=== PATIENT | female | born 1945 | race Caucasian/White ===

== ENCOUNTER → 2017-07-27 | Outpatient (CLI) | payer MEDICARE, OTHER ==
[~2017-07-27] MED LIST: AMOX-362 PO; CLI150 PO; LEVO150T72 PO
--- NOTE | 2017-07-29 09:06 | RADIOLOGY IMAGING REPORT ---
FACILITY: [facility] PATIENT NAME: KIRSTIN ESCOBEDO : [id number] MR: [id number] V: [id number] EXAM DATE: ORDERING PHYSICIAN: NICKY MORA TECHNOLOGIST: González Batista PROCEDURE:US LEFT BREAST COMPARISON:None. INDICATIONS:6 mo f/u FINDINGS: In the approximate 2 o'clock position left breast 4cm from the nipple there is an ovoid well circumscribed hypoechoic nodule just beneath the skin measuring 6.4 x 2 x 6mm with no acoustic shadowing. The nodule is wider on the top. This likely accounts for the ovoid area of increased density seen on today's mammogram. DIAGNOSTIC CATEGORY 3--PROBABLY BENIGN FINDING. RECOMMENDATIONS: SIX MONTH FOLLOW-UP DIAGNOSTIC MAMMOGRAM: BILATERAL BREASTS. IMPRESSION: BIRADS 3: Probably benign finding No significant abnormality identified in the left breast although of note the patient will be due for her annual mammogram in October 2017 Dictated by: Celine Odell M.D. on 07/27/2017 at 16:52 Transcribed by: KIMBERLY on 07/28/2017 at 11:22 Approved by: Celine Odell M.D. on 07/29/2017 at 9:05 [facility]
--- NOTE | 2017-07-29 09:06 | RADIOLOGY IMAGING REPORT ---
FACILITY: [facility] [place] PATIENT NAME: KIRSTIN ESCOBEDO : [id number] MR: [id number] V: [id number] EXAM DATE: ORDERING PHYSICIAN: NICKY MORA TECHNOLOGIST: Meche Nava PROCEDURE:LEFT DIGITAL DIAGNOSTIC MAMMOGRAM WITH CAD ASSISTED INTERPRETATION & 3D TOMOSYNTHESIS COMPARISON:Prior mammograms 10/18/16, 02/13/16, 01/15/16 INDICATIONS:6 mo f/u FINDINGS: A small amount of fibroglandular tissue is seen throughout the left breast. The parenchymal pattern has remained stable allowing for difference in mammographic technique & patient positioning. A small ovoid area of increased density in the upper outer portion of the left breast actually appears slightly less prominent. Today's left breast ultrasound demonstrated a subtle hypoechoic ovoid structure in the 2 o'clock position of the left breast which likely accounts for this finding. There is no demonstration of malignant appearing mass, or calcification in the left breast. DIAGNOSTIC CATEGORY 3--PROBABLY BENIGN FINDING. RECOMMENDATIONS: SIX MONTH FOLLOW-UP DIAGNOSTIC MAMMOGRAM: BILATERAL BREASTS. IMPRESSION: BIRADS 3: Probably benign finding No significant abnormality is seen however the patient will be due for an annual in October of 2017. Dictated by: Celine Odell M.D. on 07/27/2017 at 16:51 Transcribed by: KIMBERLY on 07/28/2017 at 13:53 Approved by: Celine Odell M.D. on 07/29/2017 at 9:05 [facility]
== END ==
LOC: MAMO 00:16
PROVIDERS: ATTEND Physician Assistant
DX: N60.02 Solitary cyst of left breast (principal)
CPT/HCPCS: 77065

== ENCOUNTER 2018-02-20 21:08 | Emergency (ER) | payer MEDICARE, OTHER ==
[2018-02-20] MEDS ORDERED: METF-450 PO (21:29)
[2018-02-20] MEDS ORDERED: [UNRECOGNIZED DRUG - CODE] MC (21:30)
--- NOTE | 2018-02-20 21:53 | ER Report ---
History and Physical Time Seen By MD: 21:53 Hx. of Stated Complaint: DOESN'T WANT TO BE HERE. FAMILY BROUGHT HER IN. FELL. RIGHT EYE BRUISED, SWOLLEN. HAS A ARPIT ON RT ARM PT DOESN'T KNOW WHERE IT CAME FROM. THINKS HER DOG KNOCKED HER OVER HPI/ROS CHIEF COMPLAINT: injury to eye, fall HISTORY OF PRESENT ILLNESS: This is a 72 year old female. [facility] She thinks she tripped and fell, but does not remember for sure. She has a contusion and hematoma around her right eye. Denies other pain. She has some mild pain over the right thigh. No other complaints. She has been drinking, but she did not think very much. Allergies: Coded Allergies: No Known Drug Allergies (Unverified , 02/20/18) Home Meds Reported Medications Gemfibrozil (GEMFIBROZIL) 1 Gm Powder, 1 GM MC 02/20/18 Metformin Hcl (METFORMIN HCL) 500 Mg Tablet, 1 TAB PO BID, TAB 02/20/18 Levothyroxine Sodium (Levoxyl) 150 Mcg Tablet, 150 MCG PO DAILY 08/29/11 Discontinued Reported Medications Amoxicillin (AMOXICILLIN) 500 Mg Capsule, 1 CAP PO TID, #15 CAPSULE 02/09/15 Reviewed Nurses Notes: Yes Hx Smoking: Yes Smoking Status: Former Smoker Hx Substance Use Disorder: No Hx Alcohol Use: No Constitutional Vital Sign - Last 24 Hours 02/20/18 02/20/18 02/20/18 02/20/18 21:19 21:30 22:00 22:30 Temp 98.5 Pulse 68 67 65 62 Resp 16 B/P (MAP) 146/74 123/71 (88) 108/63 (78) 115/73 (87) Pulse Ox 93 O2 Delivery Room Air 02/20/18 02/20/18 02/21/18 22:30 23:00 00:30 Pulse 66 65 65 B/P (MAP) 132/80 (97) 115/65 (82) 119/69 (86) Physical Exam General Appearance: Alert, no acute distress. Eyes: Pupils equal and round, reactive to light, extraocular movements are intact, has mild injection. Hematoma and bruising surrounding the right eye. ENT: Normal oral mucosa. Moist mucous membranes. Normal posterior oropharynx. Neck: Neck is supple and non tender. Respiratory: Chest is non tender, lungs are clear to auscultation. Cardiac: regular rate and rhythm Gastrointestinal: Abdomen is soft and non tender, no masses, bowel sounds normal. Musculoskeletal: Extremities have full range of motion Skin: Slight contusion on the thigh, No other bruising or laceration noted. DIFFERENTIAL DIAGNOSIS: After history and physical exam differential diagnosis was considered for fall with contusion to face. Medical Decision Making Data Points Result Diagram: 02/20/18221802/20/182218 Laboratory Hematology Test 02/20/18 22:19 02/20/18 22:20 Red Blood Count 3.91 M/uL (4.17-5.56) Mean Corpuscular Volume 96.1 fL (80.0-96.0) Mean Corpuscular Hemoglobin 33.4 pg (26.0-33.0) Mean Corpuscular Hemoglobin Concent 34.8 g/dL (32.0-36.0) Red Cell Distribution Width 13.4 % (11.5-14.5) Mean Platelet Volume 6.9 fL (7.2-11.1) Neutrophils (%) (Auto) 78.3 % (39.4-72.5) Lymphocytes (%) (Auto) 11.0 % (17.6-49.6) Monocytes (%) (Auto) 8.1 % (4.1-12.4) Eosinophils (%) (Auto) 2.1 % (0.4-6.7) Basophils (%) (Auto) 0.5 % (0.3-1.4) Nucleated RBC Relative Count (auto) 0.0 /100WBC Neutrophils # (Auto) 8.1 K/uL (2.0-7.4) Lymphocytes # (Auto) 1.1 K/uL (1.3-3.6) Monocytes # (Auto) 0.8 K/uL (0.3-1.0) Eosinophils # (Auto) 0.2 K/uL (0.0-0.5) Basophils # (Auto) 0.0 K/uL (0.0-0.1) Nucleated RBC Absolute Count (auto) 0.00 K/uL Sodium Level 146 mmol/L (137-145) Potassium Level 3.4 mmol/L (3.5-5.0) Chloride Level 107 mmol/L (98-107) Carbon Dioxide Level 20 mmol/L (22-31) Blood Urea Nitrogen 13 mg/dl (7-18) Creatinine 0.70 mg/dl (0.52-1.04) Glomerular Filtration Rate Calc > 60.0 Random Glucose 91 mg/dl (75-110) Calcium Level 9.6 mg/dl (8.4-10.2) Total Bilirubin 0.3 mg/dl (0.2-1.3) Aspartate Amino Transf (AST/SGOT) 38 U/L (0-35) Alanine Aminotransferase (ALT/SGPT) 23 U/L (0-56) Alkaline Phosphatase 51 U/L (0-126) Total Protein 8.4 g/dl (6.3-8.2) Albumin 5.0 g/dl (3.5-5.0) Serum Alcohol 108 mg/dl Urine Color Yellow Urine Clarity Clear Urine pH 5.0 pH (4.8-9.5) Urine Specific [place] 1.005 Urine Protein Negative mg/dL (NEGATIVE) Urine Glucose (UA) Negative mg/dL (NEGATIVE) Urine Ketones Negative mg/dL (NEGATIVE) Urine Blood Small (NEGATIVE) Urine Nitrite Negative (NEGATIVE) Urine Bilirubin Negative (NEGATIVE) Urine Urobilinogen Negative mg/dL (0.2-1.9) Urine Leukocyte Esterase Small (NEGATIVE) Urine RBC None /HPF (0-2/HPF) Urine WBC 5 /HPF (0-5/HPF) Urine Squamous Epithelial Cells None /LPF (</=FEW) Urine Bacteria Few /HPF (NONE-FEW) Urine Mucus None /HPF (NONE-FEW) Urine Opiates Screen Negative Urine Barbiturates Screen Negative Ur Tricyclic Antidepressants Screen Negative Urine Phencyclidine Screen Negative Urine Amphetamines Screen Negative Urine Benzodiazepines Screen Negative Urine Cocaine Screen Negative Urine Cannabinoids Screen Negative Chemistry Test 02/20/18 22:19 02/20/18 22:20 White Blood Count 10.3 k/uL (4.5-11.0) Red Blood Count 3.91 M/uL (4.17-5.56) Hemoglobin 13.0 g/dL (12.0-16.0) Hematocrit 37.5 % (34.0-47.0) Mean Corpuscular Volume 96.1 fL (80.0-96.0) Mean Corpuscular Hemoglobin 33.4 pg (26.0-33.0) Mean Corpuscular Hemoglobin Concent 34.8 g/dL (32.0-36.0) Red Cell Distribution Width 13.4 % (11.5-14.5) Platelet Count 437 K/uL (150-450) Mean Platelet Volume 6.9 fL (7.2-11.1) Neutrophils (%) (Auto) 78.3 % (39.4-72.5) Lymphocytes (%) (Auto) 11.0 % (17.6-49.6) Monocytes (%) (Auto) 8.1 % (4.1-12.4) Eosinophils (%) (Auto) 2.1 % (0.4-6.7) Basophils (%) (Auto) 0.5 % (0.3-1.4) Nucleated RBC Relative Count (auto) 0.0 /100WBC Neutrophils # (Auto) 8.1 K/uL (2.0-7.4) Lymphocytes # (Auto) 1.1 K/uL (1.3-3.6) Monocytes # (Auto) 0.8 K/uL (0.3-1.0) Eosinophils # (Auto) 0.2 K/uL (0.0-0.5) Basophils # (Auto) 0.0 K/uL (0.0-0.1) Nucleated RBC Absolute Count (auto) 0.00 K/uL Glomerular Filtration Rate Calc > 60.0 Calcium Level 9.6 mg/dl (8.4-10.2) Total Bilirubin 0.3 mg/dl (0.2-1.3) Aspartate Amino Transf (AST/SGOT) 38 U/L (0-35) Alanine Aminotransferase (ALT/SGPT) 23 U/L (0-56) Alkaline Phosphatase 51 U/L (0-126) Total Protein 8.4 g/dl (6.3-8.2) Albumin 5.0 g/dl (3.5-5.0) Serum Alcohol 108 mg/dl Urine Color Yellow Urine Clarity Clear Urine pH 5.0 pH (4.8-9.5) Urine Specific [place] 1.005 Urine Protein Negative mg/dL (NEGATIVE) Urine Glucose (UA) Negative mg/dL (NEGATIVE) Urine Ketones Negative mg/dL (NEGATIVE) Urine Blood Small (NEGATIVE) Urine Nitrite Negative (NEGATIVE) Urine Bilirubin Negative (NEGATIVE) Urine Urobilinogen Negative mg/dL (0.2-1.9) Urine Leukocyte Esterase Small (NEGATIVE) Urine RBC None /HPF (0-2/HPF) Urine WBC 5 /HPF (0-5/HPF) Urine Squamous Epithelial Cells None /LPF (</=FEW) Urine Bacteria Few /HPF (NONE-FEW) Urine Mucus None /HPF (NONE-FEW) Urine Opiates Screen Negative Urine Barbiturates Screen Negative Ur Tricyclic Antidepressants Screen Negative Urine Phencyclidine Screen Negative Urine Amphetamines Screen Negative Urine Benzodiazepines Screen Negative Urine Cocaine Screen Negative Urine Cannabinoids Screen Negative Toxicology Test 02/20/18 22:19 02/20/18 22:20 Serum Alcohol 108 mg/dl Urine Opiates Screen Negative Urine Barbiturates Screen Negative Ur Tricyclic Antidepressants Screen Negative Urine Phencyclidine Screen Negative Urine Amphetamines Screen Negative Urine Benzodiazepines Screen Negative Urine Cocaine Screen Negative Urine Cannabinoids Screen Negative Urinalysis Test 02/20/18 22:20 Urine Color Yellow Urine Clarity Clear Urine pH 5.0 pH (4.8-9.5) Urine Specific [place] 1.005 Urine Protein Negative mg/dL (NEGATIVE) Urine Glucose (UA) Negative mg/dL (NEGATIVE) Urine Ketones Negative mg/dL (NEGATIVE) Urine Blood Small (NEGATIVE) Urine Nitrite Negative (NEGATIVE) Urine Bilirubin Negative (NEGATIVE) Urine Urobilinogen Negative mg/dL (0.2-1.9) Urine Leukocyte Esterase Small (NEGATIVE) Urine RBC None /HPF (0-2/HPF) Urine WBC 5 /HPF (0-5/HPF) Urine Squamous Epithelial Cells None /LPF (</=FEW) Urine Bacteria Few /HPF (NONE-FEW) Urine Mucus None /HPF (NONE-FEW) EKG/Imaging Imaging CT Head without contrast and CT facial bones Indication: right eye/face injury Comparison: None available Technique: CT head: Axial CT images were obtained through the brain from the skull base to the vertex without administration of IV contrast. Technique: CT facial bones: Axial CT images are obtained through the facial bones. Reformatted coronal and sagittal images were reviewed. One of the following dose optimization techniques was utilized in the performance of this exam: Automated exposure control; adjustment of the mA and/or kV according to the patient's size; or use of an iterative rec onstruction technique. Specific details can be referenced in the facility's radiology CT exam operational policy. FINDINGS: CT head: No evidence of mass, mass effect, or midline shift. No acute intracranial hemorrhage or acute territorial infarction. No calvarial fracture. CT facial bones: Prominent right periorbital soft tissue swelling/contusion. No acute fracture of the facial bones. Globes and orbits are grossly normal. Paranasal sinuses and mastoid air spaces are clear. The visualized upper cervical spine is nonacute. IMPRESSION: 1. No acute intracranial abnormality. 2. Prominent right periorbital soft tissue swelling/contusion with no acute abnormality of the facial bones. Report Dictated By: Guille Brice MD at 02/20/2018 11:53 PM ED Course/Re-evaluation ED Course Reviewed labs and imaging results with the patient. Recommended Ibuprofen for pain and use of an ice pack as needed for pain and swelling. Decision to Disposition Date: Feb 21, 2018 Decision to Disposition Time: 00:33 Depart Departure Latest Vital Signs Vital Signs Date Time Temp Pulse Resp B/P (MAP) Pulse Ox O2 Delivery O2 Flow Rate FiO2 02/21/18 00:30 65 119/69 (86) 02/20/18 21:19 98.5 16 93 Room Air Impression: Primary Impression: Contusion of face Additional Impression: Alcohol intoxication Condition: Improved Disposition: HOME OR SELF-CARE Referrals: NICKY MORA (PCP) Patient Instructions: Facial Contusion (ED) Additional Instructions: Use Ibuprofen or tylenol as needed for pain. You can apply an ice pack to help with pain and swelling Problem Qualifiers Primary Impression: Contusion of face Encounter type: initial encounter Qualified Codes: S00.83XA - Contusion of other part of head, initial encounter Additional Impression: Alcohol intoxication Complication of substance-induced condition: uncomplicated Qualified Codes: F10.920 - Alcohol use, unspecified with intoxication, uncomplicated CHRIST ESPINO MD Feb 20, 2018 21:53
[2018-02-20 22:29] LABS: PLATELET COUNT, AUTOMATED 437 K/uL (150-450)
--- NOTE | 2018-02-21 00:04 | RADIOLOGY IMAGING REPORT ---
FACILITY: [facility] PATIENT NAME: Chana Falcon : 1945 MR: [id number] V: [id number] EXAM DATE: ORDERING PHYSICIAN: CHRIST ESPINO TECHNOLOGIST: Location: [facility] [place] Patient: Chana Falcon : 1945 Visit/Account:[id number] Date of Sevice: 02/20/2018 CT Head without contrast and CT facial bones Indication: right eye/face injury Comparison: None available Technique: CT head: Axial CT images were obtained through the brain from the skull base to the verte x without administration of IV contrast. Technique: CT facial bones: Axial CT images are obtained through the facial bones. Reformatted hernandez l and sagittal images were reviewed. One of the following dose optimization techniques was utilized in the performance of this exam: Autom ated exposure control; adjustment of the mA and/or kV according to the patient's size; or use of an i terative reconstruction technique. Specific details can be referenced in the facility's radiology C T exam operational policy. FINDINGS: CT head: No evidence of mass, mass effect, or midline shift. No acute intracranial hemorrhage or acute territorial infarction. No calvarial fracture. CT facial bones: Prominent right periorbital soft tissue swelling/contusion. No acute fracture of the facial bones. Globes and orbits are grossly normal. Paranasal sinuses and mastoid air spaces are clear. The visualized upper cervical spine is nonacute. IMPRESSION: 1. No acute intracranial abnormality. 2. Prominent right periorbital soft tissue swelling/contusion with no acute abnormality of the facia l bones. Report Dictated By: Guille Birce MD at 02/20/2018 11:53 PM Report E-Signed By: Guille Brice MD at 02/21/2018 12:00 AM WSN:[id number]
--- NOTE | 2018-02-21 00:05 | RADIOLOGY IMAGING REPORT ---
[place] [facility] [place] NAME: Chana Falcon : 1945 MR: [id number] V: [id number] EXAM DATE: ORDERING PHYSICIAN: CHRIST ESPINO TECHNOLOGIST: Location: [facility] Patient: Chana Falcon : 1945 Visit/Account:[id number] Date of Sevice: 02/20/2018 CT Head without contrast and CT facial bones Indication: right eye/face injury Comparison: None available Technique: CT head: Axial CT images were obtained through the brain from the skull base to the verte x without administration of IV contrast. Technique: CT facial bones: Axial CT images are obtained through the facial bones. Reformatted hernandez l and sagittal images were reviewed. One of the following dose optimization techniques was utilized in the performance of this exam: Autom ated exposure control; adjustment of the mA and/or kV according to the patient's size; or use of an i terative reconstruction technique. Specific details can be referenced in the facility's radiology C T exam operational policy. FINDINGS: CT head: No evidence of mass, mass effect, or midline shift. No acute intracranial hemorrhage or acute territorial infarction. No calvarial fracture. CT facial bones: Prominent right periorbital soft tissue swelling/contusion. No acute fracture of the facial bones. Globes and orbits are grossly normal. Paranasal sinuses and mastoid air spaces are clear. The visualized upper cervical spine is nonacute. IMPRESSION: 1. No acute intracranial abnormality. 2. Prominent right periorbital soft tissue swelling/contusion with no acute abnormality of the facia l bones. Report Dictated By: Guille Brice MD at 02/20/2018 11:53 PM Report E-Signed By: Guille Brice MD at 02/21/2018 12:00 AM WSN:[id number]
[2018-02-21 00:30] VITALS: BP 119/69
== END 2018-02-21 00:43 | disposition home or self-care (01) ==
LOC: ER 21:58
DX: S00.83XA Contusion of other part of head, initial encounter (principal); F10.920 Alcohol use, unspecified with intoxication, uncomplicated
CPT/HCPCS: 70450; 70486; 80305; 81001; 85025; 99284; G0480; 80320; 82040; 82247; 82310; 82374; 82435; 82565; 82947; 84075; 84132; 84155; 84295; 84450; 84460; 84520

== ENCOUNTER → 2018-02-28 | Outpatient (CLI) | payer MEDICARE, OTHER ==
[~2018-02-28] MED LIST changes: +METF-450 PO; +[UNRECOGNIZED DRUG - CODE] MC
--- NOTE | 2018-02-28 11:46 | RADIOLOGY IMAGING REPORT ---
FACILITY: [facility] PATIENT NAME: Chana Falcon : 1945 MR: [id number] V: [id number] EXAM DATE: ORDERING PHYSICIAN: NICKY MORA TECHNOLOGIST: Location: [facility] - [place] Patient: Chana Falcon : 1945 Visit/Account:[id number] Date of Sevice: 02/28/2018 DEXA Scan Clinical history: Postmenopausal osteoporosis. Comparison: DEXA scan from 01/15/2016. LUMBAR SPINE: The bone mineral density (BMD) measured from L1-L4 correlates with a Z-score of 0.7 and a T-score of -1.6 which is osteopenia as defined by the World Health Organization. The corresponding risk of frac ture in the lumbar spine is 3-4 times increased compared with a young adult reference population. Th is value has increased by 7.8 % since the prior study. More than 5% change is considered significant . HIP: Bone mineral density (BMD) measured in the LEFT total hip region correlates with a Z-score -0.3 and a T-score of -2.2 which is osteopenia as defined by the World Health Organization. The corresponding risk of fracture in the hip is 4-6 times increased compared to a young adult reference population. Th is value has increase by 0.6 % since the prior study. More than 5% change is considered significant. Score left femoral neck -2.2 Bone mineral density (BMD) measured in the Femoral Neck region measures 0.725 g/cm?. IMPRESSION: 1. Lumbar spine: Osteopenia. There has been 7.8% increase in the bone mineral density since the pre vious exam. 2. Left Total Hip: Osteopenia. There has been 0.6% increase in the bone mineral density since the p revious exam. 3. Femoral Neck: Bone Mineral Density is 0.725 g/cm? The next DEXA scan of this patient should include the following sites: L1-L4 and the left hip. FRAX? WHO Fracture Risk Assessment Tool link: <http://www.shef.ac.uk/FRAX/tool.jsp?locationValue=9> PLEASE NOTE: 1) The World Health Organization defines low BMD as follows: T-score Normal > -1 Osteopenia < -1 and > -2.5 Osteoporosis < -2.5 without fractures Established osteoporosis < -2.5 with fractures 2) In general, you may wish to consider: Diagnosis Treatment Follow-up DEXA Normal BMD Prevention 2-3 years Osteopenia Prevention/therapy 1-2 years Osteoporosis Therapy Yearly 3) Fracture risk estimated from the T-score is more accurate for vertebral fractures (often spontane ous) than for hip fractures. Report Dictated By: Celine Odell MD at 02/28/2018 11:40 AM Report E-Signed By: Celine Odell MD at 02/28/2018 11:41 AM WSN:[id number]
--- NOTE | 2018-02-28 16:05 | RADIOLOGY IMAGING REPORT ---
FACILITY: [facility] - [place] PATIENT NAME: KIRSTIN ESCOBEDO : [id number] MR: [id number] V: [id number] EXAM DATE: ORDERING PHYSICIAN: NICKY MORA TECHNOLOGIST: Meche Nava PROCEDURE:BILATERAL DIGITAL SCREENING MAMMOGRAM WITH CAD ASSISTED INTERPRETATION & 3D TOMOSYNTHESIS COMPARISON:Prior mammograms 07/27/17, 10/18/16, 02/13/16, 01/15/16. INDICATIONS:SCREENING FINDINGS: A small amount of fibroglandular tissue is seen throughout the breasts. The parenchymal pattern has remained stable allowing for difference in mammographic technique & patient positioning. There is no evidence of malignant appearing mass, malignant appearing calcifications or other secondary sign of malignancy in either breast. DIAGNOSTIC CATEGORY 1--NEGATIVE. RECOMMENDATIONS: ROUTINE MAMMOGRAM AND CLINICAL EVALUATION. IMPRESSION: BIRADS 1: Negative. No significant abnormality is seen. Dictated by: Celine Odell M.D. on 02/28/2018 at 10:51 Transcribed by: KIMBERLY on 02/28/2018 at 10:57 Approved by: Celine Odell M.D. on 02/28/2018 at 16:04 [facility]
--- NOTE | 2018-02-28 16:05 | RADIOLOGY IMAGING REPORT ---
FACILITY: [facility] PATIENT NAME: KIRSTIN ESCOBEDO : [id number] MR: [id number] V: [id number] EXAM DATE: ORDERING PHYSICIAN: NICKY MORA TECHNOLOGIST: Meche Nava PROCEDURE:BILATERAL DIGITAL SCREENING MAMMOGRAM WITH CAD ASSISTED INTERPRETATION & 3D TOMOSYNTHESIS COMPARISON:Prior mammograms 07/27/17, 10/18/16, 02/13/16, 01/15/16. INDICATIONS:SCREENING FINDINGS: A small amount of fibroglandular tissue is seen throughout the breasts. The parenchymal pattern has remained stable allowing for difference in mammographic technique & patient positioning. There is no evidence of malignant appearing mass, malignant appearing calcifications or other secondary sign of malignancy in either breast. DIAGNOSTIC CATEGORY 1--NEGATIVE. RECOMMENDATIONS: ROUTINE MAMMOGRAM AND CLINICAL EVALUATION. IMPRESSION: BIRADS 1: Negative. No significant abnormality is seen. Dictated by: Celine Odell M.D. on 02/28/2018 at 10:51 Transcribed by: KIMBERLY on 02/28/2018 at 10:57 Approved by: Celine Odell M.D. on 02/28/2018 at 16:04 [facility]
== END ==
LOC: RAD 01:02
PROVIDERS: ATTEND Physician Assistant
DX: Z12.31 Encounter for screening mammogram for malignant neoplasm of breast (principal); M85.80 Other specified disorders of bone density and structure, unspecified site
CPT/HCPCS: 77062; 77063; 77066; 77067; 77080

== ENCOUNTER → 2018-11-30 | Outpatient (CLI) | payer MEDICARE, OTHER ==
--- NOTE | 2018-11-30 14:37 | EKG ---
[place] [facility] [place] NAME: KIRSTIN ESCOBEDO : [id number] MR: [id number] V: [id number] EXAM DATE: ORDERING PHYSICIAN: JESSICA LITTLE TECHNOLOGIST: Jane Wooten Reason : PRE-OP Blood Pressure : / mmHG Vent. Rate : 056 BPM Atrial Rate : 056 BPM P-R Int : 150 ms QRS Dur : 088 ms QT Int : 468 ms P-R-T Axes : 075 065 060 degrees QTc Int : 451 ms Sinus bradycardia Possible left atrial enlargement Poor R wave progression anteriorly raising question of previous infarct Nonspecific ST findings anterior leads Abnormal ECG No previous ECGs available Confirmed by KALYAN GARCIA ([id number]) on 11/30/2018 8:05:48 PM Referred By: Confirmed By:KALYAN GARCIA
== END ==
LOC: CARD 11:33
PROVIDERS: ATTEND Plastic Surgery
DX: Z01.810 Encounter for preprocedural cardiovascular examination (principal); Z01.812 Encounter for preprocedural laboratory examination; R94.31 Abnormal electrocardiogram [ECG] [EKG]
CPT/HCPCS: 93005

== ENCOUNTER → 2018-12-08 | Outpatient (CLI) | payer MEDICARE, OTHER ==
--- NOTE | 2018-12-08 15:51 | RADIOLOGY IMAGING REPORT ---
FACILITY: [facility] - [place] PATIENT NAME: Chana Falcon : 1945 MR: [id number] V: [id number] EXAM DATE: ORDERING PHYSICIAN: NICKY MORA TECHNOLOGIST: Location: [facility] [place] Patient: Chana Falcon : 1945 Visit/Account:[id number] Date of Sevice: 12/08/2018 DEXA Scan Clinical history: History of osteopenia, increasing back pain. Comparison: DEXA scan from 02/28/2018. LUMBAR SPINE: The bone mineral density (BMD) measured from L1-L4 correlates with a Z-score of 0.8 and a T-score of -1.5 which is osteopenia as defined by the World Health Organization. The corresponding risk of frac ture in the lumbar spine is 3 times increased compared with a young adult reference population. This value has increase by 0.9 % since the prior study. More than 5% change is considered significant. HIP: Bone mineral density (BMD) measured in the LEFT total hip region correlates with a Z-score -0.2 and a T-score of -2.1 which is osteopenia as defined by the World Health Organization. The corresponding risk of fracture in the hip is 4-6 times increased compared to a young adult reference population. Th is value has increase by 1.8 % since the prior study. More than 5% change is considered significant. T score left femoral neck -2 Bone mineral density (BMD) measured in the Femoral Neck region measures 0.754 g/cm?. IMPRESSION: 1. Lumbar spine: Osteopenia. There has been 0.9% increase in the bone mineral density since the pre vious exam. 2. Left Total Hip: Osteopenia. There has been 1.8% increase in the bone mineral density since the p revious exam. 3. Femoral Neck: Bone Mineral Density is 0.754 g/cm? The next DEXA scan of this patient should include the following sites: L1-L4 and the left hip. FRAX? WHO Fracture Risk Assessment Tool link: <http://www.shef.ac.uk/FRAX/tool.jsp?locationValue=9> PLEASE NOTE: 1) The World Health Organization defines low BMD as follows: T-score Normal > -1 Osteopenia < -1 and > -2.5 Osteoporosis < -2.5 without fractures Established osteoporosis < -2.5 with fractures 2) In general, you may wish to consider: Diagnosis Treatment Follow-up DEXA Normal BMD Prevention 2-3 years Osteopenia Prevention/therapy 1-2 years Osteoporosis Therapy Yearly 3) Fracture risk estimated from the T-score is more accurate for vertebral fractures (often spontane ous) than for hip fractures. Report Dictated By: Celine Odell MD at 12/08/2018 3:35 PM Report E-Signed By: Celine Odell MD at 12/08/2018 3:45 PM LATOSHAN:[email or web address]
== END ==
LOC: RAD 00:40
PROVIDERS: ATTEND Physician Assistant
DX: M85.89 Other specified disorders of bone density and structure, multiple sites (principal); I36.1 Nonrheumatic tricuspid (valve) insufficiency
CPT/HCPCS: 77080; 93306